=== PATIENT | male | born 1955 | race Caucasian/White ===

== ENCOUNTER 2025-01-27 23:36 | Emergency (ER) | payer OTHER ==
[~2025-01-27] VITALS: Ht 167.6 cm; Wt 86.2 kg
[~2025-01-27 23:36] MED LIST: Bactrim Ds Tab1 EACH PO
[2025-01-28 00:15] LABS: Source, Urine Foley catheter
[2025-01-28 00:33] LABS: Bilirubin, Urine Neg (Neg); Blood, Urine 3+ (Neg); Glucose Qualitative, Urine Neg (Neg); Ketones, Urine Neg (Neg); Leukocyte Esterase, Urine Neg (Neg); Nitrite, Urine Neg (Neg); Protein, Urine 1+ (Neg); Specific Gravity, Urine 1.015 (1.003-1.022); Urobilinogen, Urine NORM (Normal)
[2025-01-28 00:35] LABS: Appearance, Urine Clear (Clear); Color, Urine Yellow (P-Yellow)
[2025-01-28 00:46] LABS: Bacteria Rare /hpf; Red Blood Cells, Urine 25-50 /hpf (0-2); Squamous Epithelial Cells Not Seen /hpf (Few)
[2025-01-28] MEDS ORDERED: OxyCODONE HCL 5 MG TAB PO ONE (00:55)
[2025-01-28] MEDS ORDERED: RX Prepack 6 Tabs Oxycodone 5mg UD ONE (01:10)
[2025-01-28] MEDS ORDERED: OXAYDO5 M1 PO (01:30)
== END 2025-01-28 02:49 | disposition home or self-care (01) ==
LOC: ER 23:36
PROVIDERS: Student in an Organized Health Care Education/Training Program
DX: R33.9 Retention of urine, unspecified (principal); Z79.2 Long term (current) use of antibiotics
CPT/HCPCS: 51702; 51798; 81001; 87086; 99284-25; A9270

== ENCOUNTER 2025-02-05 05:44 | Emergency (ER) | payer OTHER ==
[~2025-02-05] VITALS: Ht 167.6 cm; Wt 82.5 kg
[~2025-02-05 05:44] MED LIST changes: +OXAYDO5 M1 PO
[2025-02-05 06:06] LABS: BASOPHILS ABSOLUTE AUTO 0.05 K/mm3 (0.00-0.23); BASOPHILS PERCENT AUTO 1 % (0-2); EOSINOPHILS ABSOLUTE AUTO 0.52 K/mm3 (0.00-0.68); EOSINOPHILS PERCENT AUTO 12 % (0-6); Hematocrit 38.3 % (37.0-53.0); Hemoglobin 12.4 g/dL (13.5-17.5); IMMATURE GRAN ABSOLUTE AUTO 0.01 K/mm3 (0.00-0.10); IMMATURE GRAN PERCENT AUTO 0 % (0-1); LYMPHOCYTES ABSOLUTE AUTO 1.83 K/mm3 (0.84-5.20); LYMPHOCYTES PERCENT AUTO 42 % (21-46); MONOCYTES ABSOLUTE AUTO 0.69 K/mm3 (0.16-1.47); MONOCYTES PERCENT AUTO 16 % (4-13); Mean Corpuscular HGB 26.4 pg (26.0-34.0); Mean Corpuscular HGB Conc 32.4 g/dL (31.5-36.5); Mean Corpuscular Volume 82 fL (80-100); Mean Platelet Volume 9.2 fL (9.1-12.4); NEUTROPHILS ABSOLUTE AUTO 1.25 K/mm3 (1.96-9.15); NEUTROPHILS PERCENT AUTO 29 % (41-73); Platelet Count 233 K/mm3 (150-400); RDW Coefficient Variation 20.1 % (11.7-14.2); RDW Standard Deviation 59.6 fL (35.1-46.3); Red Blood Cell Count 4.69 M/mm3 (4.30-5.90); White Blood Cell Count 4.35 K/mm3 (4.00-11.30)
[2025-02-05 06:12] LABS: Source, Urine Foley catheter
[2025-02-05 06:17] LABS: Appearance, Urine Clear (Clear); Bilirubin, Urine Neg (Neg); Blood, Urine 4+ (Neg); Color, Urine Yellow (P-Yellow); Glucose Qualitative, Urine Neg (Neg); Ketones, Urine Neg (Neg); Leukocyte Esterase, Urine Neg (Neg); Nitrite, Urine Neg (Neg); Protein, Urine 2+ (Neg); Urobilinogen, Urine NORM (Normal)
[2025-02-05 06:23] LABS: Bacteria Not Seen /hpf; Red Blood Cells, Urine 50-100 /hpf (0-2); Squamous Epithelial Cells Not Seen /hpf (Few); White Blood Cells, Urine 0-2 /hpf (0-5)
[2025-02-05 06:33] LABS: Albumin, Blood 3.5 g/dL (3.4-5.0); Albumin/Globulin Ratio 0.9 (0.8-1.8); Bilirubin, Total 0.2 mg/dL (0.1-1.0); Bun/Creatinine Ratio 14.3 (12.0-20.0); Calcium, Blood 8.5 mg/dL (8.5-10.1); Creatinine, Blood 1.05 mg/dL (0.60-1.20); Globulin, Blood 3.7 g/dL (2.2-4.0); Potassium, Blood 4.1 mmol/L (3.5-5.5); Total Protein, Blood 7.2 g/dL (6.4-8.2)
== END 2025-02-05 07:26 | disposition home or self-care (01) ==
LOC: ER 05:44
PROVIDERS: Student in an Organized Health Care Education/Training Program
DX: T83.091A Other mechanical complication of indwelling urethral catheter, initial encounter (principal); Z87.442 Personal history of urinary calculi
CPT/HCPCS: 51702; 51798; 80053; 81001; 85025; 99283-25

== ENCOUNTER 2025-02-17 12:01 | Emergency (ER) | payer OTHER ==
[~2025-02-17] VITALS: Ht 167.6 cm; Wt 79.4 kg
[2025-02-17] MEDS ORDERED: Lidocaine 2% Jelly Uro-Jet UR ONE (12:10)
[2025-02-17 12:58] LABS: Source, Urine Foley catheter
[2025-02-17 13:02] LABS: Appearance, Urine Clear (Clear); Bilirubin, Urine Neg (Neg); Blood, Urine 5+ (Neg); Glucose Qualitative, Urine Neg (Neg); Ketones, Urine Neg (Neg); Leukocyte Esterase, Urine Neg (Neg); Nitrite, Urine Neg (Neg); Protein, Urine 1+ (Neg); Urobilinogen, Urine NORM (Normal)
[2025-02-17 13:30] LABS: Color, Urine Pale Yellow (P-Yellow)
[2025-02-17 13:31] LABS: Bacteria Few /hpf; Red Blood Cells, Urine 25-50 /hpf (0-2); Squamous Epithelial Cells Rare /hpf (Few); White Blood Cells, Urine 0-2 /hpf (0-5)
== END 2025-02-17 14:30 | disposition home or self-care (01) ==
LOC: ER 12:01
PROVIDERS: Student in an Organized Health Care Education/Training Program
DX: T83.091A Other mechanical complication of indwelling urethral catheter, initial encounter (principal)
CPT/HCPCS: 51702; 81001; 99283

== ENCOUNTER 2025-06-05 12:46 | Emergency (ER) | payer OTHER ==
[~2025-06-05] VITALS: Ht 167.6 cm; Wt 90.7 kg
[~2025-06-05 12:46] MED LIST changes: +OXYB5 PO
[2025-06-05 14:00] LABS: BASOPHILS ABSOLUTE AUTO 0.06 K/mm3 (0.00-0.23); BASOPHILS PERCENT AUTO 1 % (0-2); EOSINOPHILS ABSOLUTE AUTO 0.30 K/mm3 (0.00-0.68); EOSINOPHILS PERCENT AUTO 5 % (0-6); Hematocrit 40.3 % (37.0-53.0); Hemoglobin 13.2 g/dL (13.5-17.5); IMMATURE GRAN ABSOLUTE AUTO 0.03 K/mm3 (0.00-0.10); IMMATURE GRAN PERCENT AUTO 1 % (0-1); LYMPHOCYTES ABSOLUTE AUTO 1.21 K/mm3 (0.84-5.20); LYMPHOCYTES PERCENT AUTO 19 % (21-46); MONOCYTES ABSOLUTE AUTO 0.84 K/mm3 (0.16-1.47); MONOCYTES PERCENT AUTO 13 % (4-13); Mean Corpuscular HGB Conc 32.8 g/dL (31.5-36.5); Mean Corpuscular Volume 79 fL (80-100); NEUTROPHILS ABSOLUTE AUTO 3.85 K/mm3 (1.96-9.15); NEUTROPHILS PERCENT AUTO 61 % (41-73); NRBC ABSOLUTE 0.00 K/mm3 (0.00-0.02); NRBC Auto 0.0 /100 WBC (0.0-0.2); Platelet Count 299 K/mm3 (150-400); RDW Coefficient Variation 16.3 % (11.7-14.2); RDW Standard Deviation 46.7 fL (35.1-46.3)
[2025-06-05 14:21] LABS: Alanine Aminotransfer (ALT/SGP 40.0 U/L (12-78); Albumin, Blood 3.5 g/dL (3.4-5.0); Albumin/Globulin Ratio 0.8 (0.8-1.8); Anion Gap 7.0 mmol/L (3-11); Aspartate Aminotrans (AST/SGOT 45.0 U/L (12-37); Bilirubin, Total 0.4 mg/dL (0.1-1.0); Blood Urea Nitrogen 5.0 mg/dL (8-24); CO2, Blood 28.0 mmol/L (21-32); Calcium, Blood 8.4 mg/dL (8.5-10.1); Chloride, Blood 102.0 mmol/L (98-108); Creatinine, Blood 0.73 mg/dL (0.60-1.20); Globulin, Blood 4.3 g/dL (2.2-4.0); Glucose, Blood 97.0 mg/dL (70-99); Potassium, Blood 4.3 mmol/L (3.5-5.5); Sodium, Blood 133.0 mmol/L (136-145); Total Protein, Blood 7.8 g/dL (6.4-8.2)
[2025-06-05] MEDS ORDERED: Lidocaine 2% Jelly Uro-Jet UR ONE (16:00)
[2025-06-05 17:19] LABS: Source, Urine Foley catheter
[2025-06-05 17:36] LABS: Bilirubin, Urine Neg (Neg); Glucose Qualitative, Urine Neg (Neg); Ketones, Urine 2+ (Neg); Leukocyte Esterase, Urine 3+ (Neg); Protein, Urine 2+ (Neg); Specific Gravity, Urine 1.005 (1.003-1.022); Urobilinogen, Urine NORM (Normal)
[2025-06-05] MEDS ORDERED: OxyCODONE 5 mg/Acetamin 325 mg TABLET PO ONE (17:45)
[2025-06-05 17:54] LABS: Color, Urine Pale Yellow (P-Yellow)
[2025-06-05] MEDS ORDERED: CefTRIAXone Sodium 1,000 MG in NS 50 ML IV ONE (18:35)
[2025-06-05] MEDS ORDERED: OXYC5 PO (18:37)
[2025-06-05] MEDS ORDERED: CEPH500 PO (18:37)
== END 2025-06-05 19:57 | disposition home or self-care (01) ==
LOC: ER 12:46
PROVIDERS: Emergency Medicine; Student in an Organized Health Care Education/Training Program
DX: T83.511A Infection and inflammatory reaction due to indwelling urethral catheter, initial encounter (principal); N39.0 Urinary tract infection, site not specified; Y84.6 Urinary catheterization as the cause of abnormal reaction of the patient, or of later complication, without mention of misadventure at the time of the procedure
CPT/HCPCS: 51702; 74177; 80053; 81001; 85025; 87077; 87086; 87186; 96374-59; 99284-25; A9270; J0696; Q9967

== ENCOUNTER 2025-07-10 07:03 | Emergency (ER) | payer OTHER ==
[~2025-07-10] VITALS: Ht 167.6 cm; Wt 93.0 kg
[~2025-07-10 07:03] MED LIST changes: +CEPH500 PO; +OXYC5 PO
[2025-07-10 08:57] LABS: Source, Urine Clean Catch
[2025-07-10 09:06] LABS: Bilirubin, Urine Neg (Neg); Color, Urine Yellow (P-Yellow); Glucose Qualitative, Urine Neg (Neg); Ketones, Urine Neg (Neg); Leukocyte Esterase, Urine 2+ (Neg); Protein, Urine 3+ (Neg); Specific Gravity, Urine 1.010 (1.003-1.022); Urobilinogen, Urine NORM (Normal)
[2025-07-10 09:15] LABS: Red Blood Cells, Urine 50-100 /hpf (0-2); White Blood Cells, Urine 25-50 /hpf (0-5)
== END 2025-07-10 09:55 | disposition home or self-care (01) ==
LOC: ER 07:03
PROVIDERS: Student in an Organized Health Care Education/Training Program
DX: T83.83XA Hemorrhage due to genitourinary prosthetic devices, implants and grafts, initial encounter (principal); T83.84XA Pain due to genitourinary prosthetic devices, implants and grafts, initial encounter; Z79.899 Other long term (current) drug therapy
CPT/HCPCS: 51702; 81001; 87077; 87086; 87186; 99283-25

== ENCOUNTER 2025-07-12 15:13 | Emergency (ER) | payer OTHER ==
[~2025-07-12] VITALS: Ht 167.6 cm; Wt 90.7 kg
[2025-07-12] MEDS ORDERED: Amlodipine Bes2.5 MG PO (16:22)
[2025-07-12] MEDS ORDERED: METO50ER PO (16:22)
[2025-07-12] MEDS ORDERED: ATOR20 PO (16:22)
[2025-07-12 16:38] LABS: BASOPHILS ABSOLUTE AUTO 0.04 K/mm3 (0.00-0.23); BASOPHILS PERCENT AUTO 0 % (0-2); EOSINOPHILS ABSOLUTE AUTO 0.02 K/mm3 (0.00-0.68); EOSINOPHILS PERCENT AUTO 0 % (0-6); Hematocrit 37.0 % (37.0-53.0); Hemoglobin 12.2 g/dL (13.5-17.5); IMMATURE GRAN ABSOLUTE AUTO 0.07 K/mm3 (0.00-0.10); IMMATURE GRAN PERCENT AUTO 1 % (0-1); LYMPHOCYTES ABSOLUTE AUTO 0.66 K/mm3 (0.84-5.20); LYMPHOCYTES PERCENT AUTO 7 % (21-46); MONOCYTES ABSOLUTE AUTO 1.43 K/mm3 (0.16-1.47); MONOCYTES PERCENT AUTO 15 % (4-13); Mean Corpuscular HGB Conc 33.0 g/dL (31.5-36.5); Mean Corpuscular Volume 78 fL (80-100); NEUTROPHILS ABSOLUTE AUTO 7.43 K/mm3 (1.96-9.15); NEUTROPHILS PERCENT AUTO 77 % (41-73); NRBC ABSOLUTE 0.00 K/mm3 (0.00-0.02); NRBC Auto 0.0 /100 WBC (0.0-0.2); Platelet Count 248 K/mm3 (150-400); RDW Coefficient Variation 17.9 % (11.7-14.2); RDW Standard Deviation 49.9 fL (35.1-46.3)
[2025-07-12 16:58] LABS: Source, Urine Foley catheter
[2025-07-12 17:03] LABS: Bilirubin, Urine Neg (Neg); Glucose Qualitative, Urine Neg (Neg); Ketones, Urine 3+ (Neg); Leukocyte Esterase, Urine 3+ (Neg); Protein, Urine 2+ (Neg); Specific Gravity, Urine 1.010 (1.003-1.022); Urobilinogen, Urine NORM (Normal)
[2025-07-12 17:09] LABS: Color, Urine Pale Yellow (P-Yellow)
[2025-07-12 17:10] LABS: Red Blood Cells, Urine 25-50 /hpf (0-2); White Blood Cells, Urine TNTC /hpf (0-5)
[2025-07-12 17:10] LABS: Alanine Aminotransfer (ALT/SGP 42.0 U/L (12-78); Albumin, Blood 2.7 g/dL (3.4-5.0); Albumin/Globulin Ratio 0.6 (0.8-1.8); Anion Gap 10.0 mmol/L (3-11); Aspartate Aminotrans (AST/SGOT 46.0 U/L (12-37); Bilirubin, Total 0.5 mg/dL (0.1-1.0); Blood Urea Nitrogen 7.0 mg/dL (8-24); CO2, Blood 22.0 mmol/L (21-32); Calcium, Blood 8.3 mg/dL (8.5-10.1); Chloride, Blood 101.0 mmol/L (98-108); Creatinine, Blood 1.03 mg/dL (0.60-1.20); Globulin, Blood 4.3 g/dL (2.2-4.0); Glucose, Blood 99.0 mg/dL (70-99); Potassium, Blood 3.6 mmol/L (3.5-5.5); Sodium, Blood 129.0 mmol/L (136-145); Total Protein, Blood 7.0 g/dL (6.4-8.2)
[2025-07-12] MEDS ORDERED: CefTRIAXone Sodium 1,000 MG in NS 50 ML IV ONE (17:40)
[2025-07-12 18:00] LABS: Influenza A, PCR NEGATIVE (NEGATIVE); Influenza B, PCR NEGATIVE (NEGATIVE); Resp Syncytial Virus, PCR NEGATIVE (NEGATIVE); SARS-Cov-2 (COVID-19) PCR, MMC NEGATIVE (NEGATIVE)
[2025-07-12] MEDS ORDERED: HYDROmorphone HCl/Pf 1MG SYR IV ONE (18:05)
[2025-07-12] MEDS ORDERED: RX Prepack 6 Tabs Oxycodone 5mg UD ONE (18:50)
== END 2025-07-12 19:12 | disposition home or self-care (01) ==
LOC: ER 15:13
PROVIDERS: Student in an Organized Health Care Education/Training Program
DX: N39.0 Urinary tract infection, site not specified (principal); R31.9 Hematuria, unspecified; Z96.0 Presence of urogenital implants; Z79.899 Other long term (current) drug therapy
CPT/HCPCS: 51798; 71045; 80053; 81001; 83605; 83690; 85025; 87040; 87077; 87086; 87186; 87637; 96361; 96374; 96375; 99284-25; A9270; J0696; J1171; J7120

== ENCOUNTER 2025-07-27 07:32 | Emergency (ER) | payer OTHER ==
[~2025-07-27] VITALS: Ht 167.6 cm; Wt 90.7 kg
[~2025-07-27 07:32] MED LIST changes: +ATOR20 PO; +Amlodipine Bes2.5 MG PO; +METO50ER PO
[2025-07-27] MEDS ORDERED: Lidocaine 2% Jelly Uro-Jet TOP ONE (10:55)
== END 2025-07-27 11:42 | disposition home or self-care (01) ==
LOC: ER 07:32
DX: Z46.6 Encounter for fitting and adjustment of urinary device (principal); N39.0 Urinary tract infection, site not specified; I10 Essential (primary) hypertension; E78.5 Hyperlipidemia, unspecified; Z79.899 Other long term (current) drug therapy; Z87.442 Personal history of urinary calculi
CPT/HCPCS: 51702; 99282

== ENCOUNTER 2025-08-22 10:37 | Inpatient (IN) | payer OTHER ==
[~2025-08-22] VITALS: Ht 167.6 cm; Wt 92.4 kg
[~2025-08-22 10:37] MED LIST changes: +ATOR10 PO; -ATOR20 PO
[2025-08-22] MEDS ORDERED: NS 1,000 ML IV SCH (11:20)
[2025-08-22] MEDS ORDERED: CefTRIAXone Sodium 1,000 MG in NS 100 ML IV ONE (11:20)
[2025-08-22 11:30] LABS: BASOPHILS ABSOLUTE AUTO 0.06 K/mm3 (0.00-0.23); BASOPHILS PERCENT AUTO 0 % (0-2); EOSINOPHILS ABSOLUTE AUTO 0.01 K/mm3 (0.00-0.68); EOSINOPHILS PERCENT AUTO 0 % (0-6); Hematocrit 37.7 % (37.0-53.0); Hemoglobin 12.8 g/dL (13.5-17.5); IMMATURE GRAN ABSOLUTE AUTO 0.07 K/mm3 (0.00-0.10); IMMATURE GRAN PERCENT AUTO 1 % (0-1); LYMPHOCYTES ABSOLUTE AUTO 0.83 K/mm3 (0.84-5.20); LYMPHOCYTES PERCENT AUTO 6 % (21-46); MONOCYTES ABSOLUTE AUTO 1.92 K/mm3 (0.16-1.47); MONOCYTES PERCENT AUTO 13 % (4-13); Mean Corpuscular HGB Conc 34.0 g/dL (31.5-36.5); Mean Corpuscular Volume 77 fL (80-100); NEUTROPHILS ABSOLUTE AUTO 11.42 K/mm3 (1.96-9.15); NEUTROPHILS PERCENT AUTO 80 % (41-73); NRBC ABSOLUTE 0.00 K/mm3 (0.00-0.02); NRBC Auto 0.0 /100 WBC (0.0-0.2); Platelet Count 290 K/mm3 (150-400); RDW Coefficient Variation 19.0 % (11.7-14.2); RDW Standard Deviation 53.7 fL (35.1-46.3)
[2025-08-22 11:47] LABS: Alanine Aminotransfer (ALT/SGP 56.0 U/L (12-78); Albumin, Blood 2.9 g/dL (3.4-5.0); Albumin/Globulin Ratio 0.6 (0.8-1.8); Anion Gap 9.0 mmol/L (3-11); Aspartate Aminotrans (AST/SGOT 53.0 U/L (12-37); Bilirubin, Total 0.8 mg/dL (0.1-1.0); Blood Urea Nitrogen 9.0 mg/dL (8-24); CO2, Blood 25.0 mmol/L (21-32); Calcium, Blood 8.7 mg/dL (8.5-10.1); Chloride, Blood 99.0 mmol/L (98-108); Creatinine, Blood 1.12 mg/dL (0.60-1.20); Globulin, Blood 4.7 g/dL (2.2-4.0); Glucose, Blood 123.0 mg/dL (70-99); Potassium, Blood 3.2 mmol/L (3.5-5.5); Sodium, Blood 130.0 mmol/L (136-145); Total Protein, Blood 7.6 g/dL (6.4-8.2)
[2025-08-22 11:54] LABS: Source, Urine Foley catheter
[2025-08-22 11:56] LABS: Bilirubin, Urine Neg (Neg); Color, Urine Yellow (P-Yellow); Glucose Qualitative, Urine Neg (Neg); Ketones, Urine Neg (Neg); Leukocyte Esterase, Urine 3+ (Neg); Protein, Urine 1+ (Neg); Specific Gravity, Urine 1.010 (1.003-1.022); Urobilinogen, Urine NORM (Normal)
[2025-08-22 12:11] LABS: White Blood Cells, Urine 25-50 /hpf (0-5)
[2025-08-22] MEDS ORDERED: Morphine Sulfate 4 MG/1 ML Injection IV ONE (12:30)
[2025-08-22] MEDS ORDERED: FLU VACC TS2025(65UP)/MF59C/PF 45 MCG/0.5 ML SYRINGE IM SCH (13:30)
[2025-08-22 15:51] VITALS: BP 115/75
--- NOTE | 2025-08-22 17:16 | NUR ---
PATIENT TO ROOM VIA YEFRI JOHNSON. ORIENTED TO ROOM AND CALL LIGHT. ADMISSION PROCESS DONE WITH PATIENT. BED IN LOW POSITION AND ENCOURAGED TO USE THE CALL LIGHT FOR ANY NEEDS.
[2025-08-22 18:16] VITALS: BP 147/106
[2025-08-22] MEDS ORDERED: OMEP20ER PO (19:51)
[2025-08-22] MEDS ORDERED: LOSA50 PO (19:51)
[2025-08-22 20:54] VITALS: BP 129/78
[2025-08-22] MEDS ORDERED: Lactobacil 2-S.Thermo-Bifido 1 1 Cap PO SCH (21:00)
[2025-08-23 04:42] LABS: BASOPHILS ABSOLUTE AUTO 0.05 K/mm3 (0.00-0.23); BASOPHILS PERCENT AUTO 0 % (0-2); EOSINOPHILS ABSOLUTE AUTO 0.06 K/mm3 (0.00-0.68); EOSINOPHILS PERCENT AUTO 1 % (0-6); Hematocrit 34.2 % (37.0-53.0); Hemoglobin 11.3 g/dL (13.5-17.5); IMMATURE GRAN ABSOLUTE AUTO 0.06 K/mm3 (0.00-0.10); IMMATURE GRAN PERCENT AUTO 1 % (0-1); LYMPHOCYTES ABSOLUTE AUTO 0.93 K/mm3 (0.84-5.20); LYMPHOCYTES PERCENT AUTO 8 % (21-46); MONOCYTES ABSOLUTE AUTO 1.74 K/mm3 (0.16-1.47); MONOCYTES PERCENT AUTO 15 % (4-13); Mean Corpuscular HGB Conc 33.0 g/dL (31.5-36.5); Mean Corpuscular Volume 78 fL (80-100); NEUTROPHILS ABSOLUTE AUTO 9.17 K/mm3 (1.96-9.15); NEUTROPHILS PERCENT AUTO 76 % (41-73); NRBC ABSOLUTE 0.00 K/mm3 (0.00-0.02); NRBC Auto 0.0 /100 WBC (0.0-0.2); Platelet Count 263 K/mm3 (150-400); RDW Coefficient Variation 19.4 % (11.7-14.2); RDW Standard Deviation 55.5 fL (35.1-46.3)
[2025-08-23 05:08] LABS: Alanine Aminotransfer (ALT/SGP 48.0 U/L (12-78); Albumin, Blood 2.3 g/dL (3.4-5.0); Albumin/Globulin Ratio 0.5 (0.8-1.8); Anion Gap 7.0 mmol/L (3-11); Aspartate Aminotrans (AST/SGOT 40.0 U/L (12-37); Bilirubin, Total 0.7 mg/dL (0.1-1.0); Blood Urea Nitrogen 6.0 mg/dL (8-24); CO2, Blood 28.0 mmol/L (21-32); Calcium, Blood 8.3 mg/dL (8.5-10.1); Chloride, Blood 101.0 mmol/L (98-108); Creatinine, Blood 0.88 mg/dL (0.60-1.20); Globulin, Blood 4.2 g/dL (2.2-4.0); Glucose, Blood 115.0 mg/dL (70-99); Potassium, Blood 3.6 mmol/L (3.5-5.5); Sodium, Blood 132.0 mmol/L (136-145); Total Protein, Blood 6.5 g/dL (6.4-8.2)
[2025-08-23 05:15] VITALS: BP 138/78
--- NOTE | 2025-08-23 06:47 | NUR ---
Shift Summary Pt had elevated BP at start of shift, restarted home BP meds per NOC hospitalist. Rawls cath in place, patent. Pt is AOx4, on bedrest. Painful bladder and back, medicated per emar.
[2025-08-23 08:21] VITALS: BP 119/77
[2025-08-23] MEDS ORDERED: Enoxaparin 40 MG/0.4 ML SYR SC SCH (09:00)
[2025-08-23] MEDS ORDERED: Aspir 8181 MG PO (11:15)
[2025-08-23] MEDS ORDERED: ARTIFICIAL TEAR15 M2 RIGHTEYE (11:15)
[2025-08-23] MEDS ORDERED: CefTRIAXone Sodium 1,000 MG in NS 100 ML IV SCH (12:00)
[2025-08-23] MEDS ORDERED: CefTRIAXone Sodium 2,000 MG in NS 100 ML IV SCH (12:00)
[2025-08-23] MEDS ORDERED: NS 250 ML IV PRN (12:45)
[2025-08-23 19:35] VITALS: BP 147/87
[2025-08-23 20:46] VITALS: BP 137/86
[2025-08-24 04:24] VITALS: BP 126/80
[2025-08-24 04:50] LABS: BASOPHILS ABSOLUTE AUTO 0.03 K/mm3 (0.00-0.23); BASOPHILS PERCENT AUTO 0 % (0-2); EOSINOPHILS ABSOLUTE AUTO 0.24 K/mm3 (0.00-0.68); EOSINOPHILS PERCENT AUTO 3 % (0-6); Hematocrit 33.6 % (37.0-53.0); Hemoglobin 11.3 g/dL (13.5-17.5); IMMATURE GRAN ABSOLUTE AUTO 0.09 K/mm3 (0.00-0.10); IMMATURE GRAN PERCENT AUTO 1 % (0-1); LYMPHOCYTES ABSOLUTE AUTO 1.08 K/mm3 (0.84-5.20); LYMPHOCYTES PERCENT AUTO 15 % (21-46); MONOCYTES ABSOLUTE AUTO 1.26 K/mm3 (0.16-1.47); MONOCYTES PERCENT AUTO 17 % (4-13); Mean Corpuscular HGB Conc 33.6 g/dL (31.5-36.5); Mean Corpuscular Volume 78 fL (80-100); NEUTROPHILS ABSOLUTE AUTO 4.70 K/mm3 (1.96-9.15); NEUTROPHILS PERCENT AUTO 64 % (41-73); NRBC ABSOLUTE 0.00 K/mm3 (0.00-0.02); NRBC Auto 0.0 /100 WBC (0.0-0.2); Platelet Count 309 K/mm3 (150-400); RDW Coefficient Variation 19.0 % (11.7-14.2); RDW Standard Deviation 54.4 fL (35.1-46.3)
[2025-08-24 05:28] LABS: Alanine Aminotransfer (ALT/SGP 67.0 U/L (12-78); Albumin, Blood 2.3 g/dL (3.4-5.0); Albumin/Globulin Ratio 0.6 (0.8-1.8); Anion Gap 10.0 mmol/L (3-11); Aspartate Aminotrans (AST/SGOT 60.0 U/L (12-37); Bilirubin, Total 0.5 mg/dL (0.1-1.0); Blood Urea Nitrogen 5.0 mg/dL (8-24); CO2, Blood 25.0 mmol/L (21-32); Calcium, Blood 8.5 mg/dL (8.5-10.1); Chloride, Blood 100.0 mmol/L (98-108); Creatinine, Blood 0.75 mg/dL (0.60-1.20); Globulin, Blood 4.1 g/dL (2.2-4.0); Glucose, Blood 105.0 mg/dL (70-99); Potassium, Blood 3.1 mmol/L (3.5-5.5); Sodium, Blood 132.0 mmol/L (136-145); Total Protein, Blood 6.4 g/dL (6.4-8.2)
--- NOTE | 2025-08-24 05:55 | NUR ---
PT C/0 NAUSEA MEDICATION GIVEN RX. NO ACUTE CHANGES NOTED THIS SHIFT PT SLEPT T/O THE NIGHT. PT REPORTS BED NEEDS TO BE ELEVATED WITH CATHETER BAG LAYING ON GROUND TO DECREASE PAIN AND ADEQUATELY ALLOW URINE TO DRAIN FROM CATHETER.
[2025-08-24 08:28] VITALS: BP 127/85
[2025-08-24 15:43] VITALS: BP 124/84
--- NOTE | 2025-08-24 18:16 | NUR ---
SHIFT SUMMARY PT AOX4, INDEPENDENT IN THE ROOM. TOMLINSON IN PLACE AND DRAINING. CALLS AND MAKES HIS NEEDS KNOWN. MEDICATED FOR PAIN PER THE EMAR, ALSO NAUSEA. POSSIBLE DC TOMORROW, WAITING ON FINAL CULTURES. REPOSITIONS SELF IN BED. CALL LIGHT WITHIN REACH, BED LOCKED AND IN THE LOWEST POSITION. WILL REPORT TO ONCOMING NURSE.
[2025-08-24 20:51] VITALS: BP 136/80
[2025-08-25 03:22] VITALS: BP 142/85
--- NOTE | 2025-08-25 04:07 | NUR ---
SHIFT SUMMARY: PT TOMLINSON IN PLACE AND DRAINING TO GRAVITY. PT EDUCATED ON BED HEIGHT AND SAFETY. PT IS AOX4 AND IND IN ROOM. NO ACUTE CHANGES THIS SHIFT
[2025-08-25 05:33] LABS: Anion Gap 10.0 mmol/L (3-11); Blood Urea Nitrogen 5.0 mg/dL (8-24); CO2, Blood 25.0 mmol/L (21-32); Calcium, Blood 8.7 mg/dL (8.5-10.1); Chloride, Blood 100.0 mmol/L (98-108); Creatinine, Blood 0.68 mg/dL (0.60-1.20); Glucose, Blood 113.0 mg/dL (70-99); Potassium, Blood 3.2 mmol/L (3.5-5.5); Sodium, Blood 132.0 mmol/L (136-145)
[2025-08-25 07:56] VITALS: BP 142/94
[2025-08-25] MEDS ORDERED: VISBIOME 112.51 EACH PO (13:03)
[2025-08-25] MEDS ORDERED: CEFP200 PO (13:06)
--- NOTE | 2025-08-25 13:52 | NUR ---
SHIFT/DISCHARGE SUMMARY: PATIENT A/OX4, PLEASANT AND COOPERATIVE c CARE. PATIENT MEDICATED FOR CASAS PER EMAR c GOOD EFFECT. PATIENT RECEIVED SCHEDULED/IV ABX PER ORDER. PATIENT HAS CHRONIC TOMLINSON, PATENT DRAINING YELLOW URINE TO GRAVITY. PATIENT HAS HAD NO COMPLAINTS OR DENIES NEW CONCERN THIS SHIFT. PIV DC'D BY ROLLER SKATES ASSEMBLER. PATIENT DISCHARGE HOME. DISCHARGE INSTRUCTIONS PACKET GIVEN TO PATIENT. PATIENT EDUCATED ON ADMITTING DX'S OF SEPSIS D/T COMPLICATED UTI c CHRONIC TOMLINSON, S/S TX, NEW RX, CATH CARE AND TO F/U c PCP. PATIENT AND SPOUSE AT BEDSIDE VERBALIZED UNDERSTANDING AND NO FURTHER QUESTIONS. RX WAS FAXED TO PATIENT PREFERRED PHARMACY-[facility]. ALL PERSONAL BELONGINGS WERE SENT c PATIENT. PATIENT LEFT THE ROOM AT 1330 VIA WC TRANSPORTED BY CNA. MENDOZA TO PATIENT ENTRANCE, RIDE AWAITING FOR HIM.
== END 2025-08-25 13:26 | disposition home or self-care (01) | DRG 698 ==
LOC: ER 10:37 → MEDS 10:38 → ENPENDDIS 08-25 12:25 → MEDS 08-25 13:26
PROVIDERS: Emergency Medicine; Student in an Organized Health Care Education/Training Program; ADMIT Hospitalist
PROC: 3E03329 Introduction of Other Anti-infective into Peripheral Vein, Percutaneous Approach (ICD-10-PCS; principal; 2025-08-22)
PROC: 0T2BX0Z Change Drainage Device in Bladder, External Approach (ICD-10-PCS; 2025-08-22)
DX: T83.511A Infection and inflammatory reaction due to indwelling urethral catheter, initial encounter (principal); A41.59 Other Gram-negative sepsis; E87.1 Hypo-osmolality and hyponatremia; N39.0 Urinary tract infection, site not specified; R33.9 Retention of urine, unspecified; E87.6 Hypokalemia; E78.5 Hyperlipidemia, unspecified; I10 Essential (primary) hypertension; K58.9 Irritable bowel syndrome, unspecified; D45 Polycythemia vera; Z86.73 Personal history of transient ischemic attack (TIA), and cerebral infarction without residual deficits; Z87.440 Personal history of urinary (tract) infections; Z85.820 Personal history of malignant melanoma of skin
CPT/HCPCS: 36415; 51702; 80048; 80053; 81001; 83605; 85025; 87040; 87077; 87086; 87186; 93005; 93010; 96365-59; 96372; 96375-59; 99284-25; A9270; G0378; J0696; J1650; J2270; J7030; J7050; J7120

== ENCOUNTER 2025-09-12 08:25 | Emergency (ER) | payer OTHER ==
[~2025-09-12] VITALS: Ht 167.6 cm; Wt 90.7 kg
[~2025-09-12 08:25] MED LIST changes: +ARTIFICIAL TEAR15 M2 RIGHTEYE; +Aspir 8181 MG PO; +CEFP200 PO; +LOSA50 PO; +OMEP20ER PO; +VISBIOME 112.51 EACH PO
[2025-09-12 09:19] LABS: BASOPHILS ABSOLUTE AUTO 0.09 K/mm3 (0.00-0.23); BASOPHILS PERCENT AUTO 2 % (0-2); EOSINOPHILS ABSOLUTE AUTO 0.38 K/mm3 (0.00-0.68); EOSINOPHILS PERCENT AUTO 9 % (0-6); Hematocrit 38.8 % (37.0-53.0); Hemoglobin 12.8 g/dL (13.5-17.5); IMMATURE GRAN ABSOLUTE AUTO 0.01 K/mm3 (0.00-0.10); IMMATURE GRAN PERCENT AUTO 0 % (0-1); LYMPHOCYTES ABSOLUTE AUTO 1.34 K/mm3 (0.84-5.20); LYMPHOCYTES PERCENT AUTO 33 % (21-46); MONOCYTES ABSOLUTE AUTO 0.49 K/mm3 (0.16-1.47); MONOCYTES PERCENT AUTO 12 % (4-13); Mean Corpuscular HGB Conc 33.0 g/dL (31.5-36.5); Mean Corpuscular Volume 81 fL (80-100); NEUTROPHILS ABSOLUTE AUTO 1.80 K/mm3 (1.96-9.15); NEUTROPHILS PERCENT AUTO 44 % (41-73); NRBC ABSOLUTE 0.00 K/mm3 (0.00-0.02); NRBC Auto 0.0 /100 WBC (0.0-0.2); Platelet Count 332 K/mm3 (150-400); RDW Coefficient Variation 17.7 % (11.7-14.2); RDW Standard Deviation 51.7 fL (35.1-46.3)
[2025-09-12 09:50] LABS: Alanine Aminotransfer (ALT/SGP 55.0 U/L (12-78); Albumin, Blood 3.7 g/dL (3.4-5.0); Albumin/Globulin Ratio 1.0 (0.8-1.8); Anion Gap 7.0 mmol/L (3-11); Aspartate Aminotrans (AST/SGOT 36.0 U/L (12-37); Bilirubin, Total 0.4 mg/dL (0.1-1.0); Blood Urea Nitrogen 12.0 mg/dL (8-24); CO2, Blood 28.0 mmol/L (21-32); Calcium, Blood 9.2 mg/dL (8.5-10.1); Chloride, Blood 104.0 mmol/L (98-108); Creatinine, Blood 0.9 mg/dL (0.60-1.20); Globulin, Blood 3.8 g/dL (2.2-4.0); Glucose, Blood 113.0 mg/dL (70-99); Potassium, Blood 4.0 mmol/L (3.5-5.5); Sodium, Blood 135.0 mmol/L (136-145); Total Protein, Blood 7.5 g/dL (6.4-8.2)
[2025-09-12 10:53] LABS: Source, Urine Clean Catch
[2025-09-12 10:59] LABS: Bilirubin, Urine Neg (Neg); Glucose Qualitative, Urine Neg (Neg); Ketones, Urine Neg (Neg); Leukocyte Esterase, Urine 2+ (Neg); Protein, Urine Neg (Neg); Specific Gravity, Urine 1.005 (1.003-1.022); Urobilinogen, Urine NORM (Normal)
[2025-09-12 11:15] LABS: Color, Urine Pale Yellow (P-Yellow)
[2025-09-12 11:29] LABS: Red Blood Cells, Urine 0-2 /hpf (0-2)
== END 2025-09-12 12:14 | disposition home or self-care (01) ==
LOC: ER 08:25
PROVIDERS: Student in an Organized Health Care Education/Training Program
DX: T83.84XA Pain due to genitourinary prosthetic devices, implants and grafts, initial encounter (principal); R82.90 Unspecified abnormal findings in urine; I10 Essential (primary) hypertension; E78.5 Hyperlipidemia, unspecified; R73.03 Prediabetes; Z86.73 Personal history of transient ischemic attack (TIA), and cerebral infarction without residual deficits; Z79.82 Long term (current) use of aspirin; Z79.899 Other long term (current) drug therapy
CPT/HCPCS: 51702; 80053; 81001; 85025; 87077; 87086; 87186; 99283-25

== ENCOUNTER 2025-10-12 07:58 | Emergency (ER) | payer OTHER ==
[~2025-10-12] VITALS: Ht 165.1 cm; Wt 86.2 kg
[2025-10-12 10:05] LABS: Source, Urine Foley catheter
[2025-10-12 10:13] LABS: Bilirubin, Urine Neg (Neg); Color, Urine Yellow (P-Yellow); Glucose Qualitative, Urine Neg (Neg); Ketones, Urine Neg (Neg); Leukocyte Esterase, Urine 3+ (Neg); Protein, Urine 3+ (Neg); Specific Gravity, Urine 1.015 (1.003-1.022); Urobilinogen, Urine NORM (Normal)
[2025-10-12 10:42] LABS: Red Blood Cells, Urine 50-100 /hpf (0-2)
== END 2025-10-12 10:02 | disposition home or self-care (01) ==
LOC: ER 07:58
PROVIDERS: Physician Assistant
DX: Z46.6 Encounter for fitting and adjustment of urinary device (principal); E78.5 Hyperlipidemia, unspecified; F43.10 Post-traumatic stress disorder, unspecified; Z79.82 Long term (current) use of aspirin; Z79.899 Other long term (current) drug therapy
CPT/HCPCS: 51702; 81001; 87077; 87086; 87186; 99283

== ENCOUNTER 2025-10-13 06:37 | Emergency (ER) | payer OTHER ==
[~2025-10-13] VITALS: Ht 167.6 cm; Wt 90.7 kg
== END 2025-10-13 10:13 | disposition home or self-care (01) ==
LOC: ER 06:37
DX: T83.091A Other mechanical complication of indwelling urethral catheter, initial encounter (principal); Z79.82 Long term (current) use of aspirin; Z79.899 Other long term (current) drug therapy
CPT/HCPCS: 51702; 99283